=== PATIENT | male | born 1960 | race Caucasian/White ===

== ENCOUNTER 2017-08-07 07:30 | Inpatient (IN) ==
[2017-08-11 12:58] LABS: Basophils % 0.5 % (0.0-0.8); Eosinophils # 0.4 10*3/uL (0.0-0.87); Eosinophils % 4.5 % (0.00-10.9); Hematocrit 38.1 VOL% (42.0-52.0); Hemoglobin 13.3 GM/DL (14.0-18.0); Immature Granulocytes % 0.4 %; Immature Granulocytes Absolute 0.03 #; Lymphocytes # 1.4 10*3/uL (1.4-4.0); Lymphocytes % 17.3 % (21.2-54.2); Mean Corpuscular HGB Conc 34.9 GM/DL (32-36); Mean Corpuscular Hemoglobin 31 PG (27-34); Mean Corpuscular Volume 88.4 FL (87-102); Monocytes # 0.5 10*3/uL (0.11-0.8); Monocytes % 6.3 % (1.7-12.7); Neutrophils # 5.7 10*3/uL (1.4-7.4); Platelet Count 203 T/CUMM (130-400); Red Blood Count 4.31 MC/CUMM (3.8-5.5); White Blood Count 8.1 T/CUMM (4-12)
[2017-08-11] MEDS ORDERED: DEXTROSE 50% 25 GM/50 ML VIAL IV PRN ×4 (13:00→14:03)
[2017-08-11] MEDS ORDERED: GLUCAGON 1 MG VIAL IM PRN ×4 (13:00→14:03)
[2017-08-11 13:29] LABS: Alanine Aminotransferase 38 U/L (16-61); Albumin 3.5 G/DL (3.4-5.0); Alkaline Phosphatase 148 U/L (45-117); Aspartate Amino Transferase 29 U/L (0-37); Bilirubin,Total < 0.39 MG/DL (0.2-1.0); Blood Urea Nitrogen 37 MG/DL (7-18); Calcium 8.7 MG/DL (8.5-10.1); Glucose 279 MG/DL (74-106); Osmolality,Calculated 295.5 MOS/KG (273-304); Potassium 4.6 MMOL/L (3.5-5.1); Sodium 139 MMOL/L (136-145); Total Protein 6.7 G/DL (6.4-8.3)
[2017-08-11] MEDS: CHLORHEXIDINE 4% SOLN 118 ML BOTTLE TOP SCH ×2 (14:55→23:00)
[2017-08-11] MEDS: CARBIDOPA/LEVODOPA 10-100 MG TABLET PO SCH ×3 (14:55→20:57)
[2017-08-11] MEDS ORDERED: SODIUM CHLORIDE 0.9% 1,000 ML IV SCH (15:00)
[2017-08-11] MEDS ORDERED: ZOLPIDEM 5 MG TABLET PO PRN (15:11)
[2017-08-11] MEDS: INSULIN LISPRO 100 UNIT/ML SUBCUT SCH ×2 (16:43→21:52)
[2017-08-11 16:48] LABS: ABG Base Excess -0.5 MMOL/L (-2.5-2.5); ABG Oxygen Saturation 97.1 % (95-100); ABG PCO2 37.3 MM HG (35-48); ABG PH 7.411 (7.35-7.45); ABG PO2 89.9 MM HG (80-95); ABG TCO2 20.7 MMOL/L (23-27)
[2017-08-11] MEDS ORDERED: LOVASTATIN 20 MG TABLET PO SCH (17:00)
[2017-08-11] MEDS: GABAPENTIN 300 MG CAPSULE PO SCH (20:57)
[2017-08-11] MEDS: RANOLAZINE 500 MG TABLET PO SCH (20:57)
[2017-08-11] MEDS: CHLORHEXIDINE 0.12% ORAL RINSE 60 ML BOTTLE SWISH/SPIT SCH (20:58)
[2017-08-11] MEDS ORDERED: ZALEPLON 5 MG CAPSULE PO PRN (22:39)
[2017-08-12] MEDS ORDERED: SODIUM CHLORIDE 0.9% 100 ML IV ONE ×2 (04:49→22:50)
[2017-08-12] MEDS ORDERED: CEFUROXIME INJ 1,500 MG in SYRINGE 1 EACH IV ONE (05:00)
[2017-08-12 05:16] LABS: Basophils # 0.1 10*3/uL (0.0-0.2); Basophils % 0.7 % (0.0-0.8); Eosinophils # 0.4 10*3/uL (0.0-0.87); Eosinophils % 5.2 % (0.00-10.9); Hematocrit 37.5 VOL% (42.0-52.0); Hemoglobin 12.9 GM/DL (14.0-18.0); Immature Granulocytes % 0.4 %; Immature Granulocytes Absolute 0.03 #; Lymphocytes # 2.1 10*3/uL (1.4-4.0); Lymphocytes % 28.2 % (21.2-54.2); Mean Corpuscular HGB Conc 34.4 GM/DL (32-36); Mean Corpuscular Hemoglobin 30 PG (27-34); Mean Corpuscular Volume 88.2 FL (87-102); Mean Platelet Volume 9.1 FL (9.6-12.0); Monocytes # 0.7 10*3/uL (0.11-0.8); Monocytes % 9.2 % (1.7-12.7); Neutrophils # 4.1 10*3/uL (1.4-7.4); Neutrophils % 56.3 % (38.7-73.9); Platelet Count 196 T/CUMM (130-400); Red Blood Count 4.25 MC/CUMM (3.8-5.5); Red Cell Distribution Width 12.8 % (9.3-17.3); White Blood Count 7.3 T/CUMM (4-12)
[2017-08-12] MEDS ORDERED: PAPAVERINE 60 MG/2 ML VIAL ONE (05:27)
[2017-08-12] MEDS ORDERED: DIAZEPAM 5 MG TABLET PO ONE (05:30)
[2017-08-12] MEDS ORDERED: FAMOTIDINE 20 MG TABLET PO ONE (05:30)
[2017-08-12 05:31] LABS: PT Patient Result 10.1 SECS
[2017-08-12] MEDS: LOSARTAN/HCTZ 50-12.5 MG TABLET PO SCH ×2 (05:45→08:10)
[2017-08-12] MEDS: RANOLAZINE 500 MG TABLET PO SCH ×2 (05:46→08:10)
[2017-08-12] MEDS: ATENOLOL 50 MG TABLET PO SCH ×2 (05:46→08:10)
[2017-08-12] MEDS ORDERED: MIDAZOLAM 10 MG/2 ML VIAL ONE ×2 (05:48)
[2017-08-12] MEDS ORDERED: TRANEXAMIC ACID 1,000 MG/10 ML VIAL ONE (05:48)
[2017-08-12] MEDS ORDERED: SUFentanil 250 MCG/5 ML AMP ONE ×2 (05:48)
[2017-08-12] MEDS ORDERED: VECURONIUM 10 MG VIAL IV ONE (05:49)
[2017-08-12 05:50] LABS: Albumin 3.2 G/DL (3.4-5.0); Calcium 8.8 MG/DL (8.5-10.1); Osmolality,Calculated 288.5 MOS/KG (273-304); Potassium 4.4 MMOL/L (3.5-5.1); Total Protein 6.4 G/DL (6.4-8.3)
[2017-08-12] MEDS: CHLORHEXIDINE 4% SOLN 118 ML BOTTLE TOP SCH ×2 (06:15→08:10)
[2017-08-12] MEDS: CHLORHEXIDINE 0.12% ORAL RINSE 60 ML BOTTLE SWISH/SPIT SCH ×3 (06:15→21:30)
[2017-08-12 07:43] LABS: ABG Base Excess -2.1 MMOL/L (-2.5-2.5); ABG HCO3 22.7 MMOL/L (20-26); ABG Oxygen Saturation 99.2 % (95-100); ABG PCO2 38.9 MM HG (35-48); ABG PH 7.383 (7.35-7.45); ABG PO2 341.4 MM HG (80-95); ABG TCO2 23.8 MMOL/L (23-27); Glucose Heart Surgery 216 MG/DL (74-106); Hemoglobin Heart Surgery 12.6 G/DL (14.0-18.0); Ionized Calcium Arterial 1.09 MMOL/L (1.21-1.46); PCO2 Patient Temp Arterial 38.9 MMHG; PH Patient Temp Arterial 7.383; PO2 Patient Temp Arterial 341.4 MM HG; Patient Temperature 37 CELCIUS; Potassium Heart/CVR 4.2 MMOL/L (3.5-5.1); Sodium Heart/CVR 134 MMOL/L (135-145)
[2017-08-12] MEDS: INSULIN LISPRO 100 UNIT/ML SUBCUT SCH (08:09)
[2017-08-12] MEDS: GABAPENTIN 300 MG CAPSULE PO SCH (08:10)
[2017-08-12] MEDS: CARBIDOPA/LEVODOPA 10-100 MG TABLET PO SCH (08:10)
[2017-08-12] MEDS ORDERED: EPINEPHrine 1 MG/10 ML SYRINGE ONE (08:19)
[2017-08-12] MEDS ORDERED: CALCIUM CHLORIDE 1,000 MG/10 ML SYRINGE IV ONE (08:19)
[2017-08-12] MEDS ORDERED: SODIUM BICARBONATE 50 MEQ/50 ML SYRINGE IV ONE ×2 (08:19→09:55)
[2017-08-12] MEDS ORDERED: ATROPINE 1 MG/10 ML SYRINGE ONE (08:20)
[2017-08-12] MEDS ORDERED: POTASSIUM CHLORIDE RIDER 100 ML IV ONE (08:20)
[2017-08-12] MEDS ORDERED: ALBUMIN 5% 12.5 GM/250 ML VIAL IV ONE (08:20)
[2017-08-12] MEDS ORDERED: PHENYLEPHRINE DRIP 40 MG/250 ML PREMIX IV ONE (08:21)
[2017-08-12] MEDS ORDERED: ASPIRIN CHEW 81 MG TABLET PO SCH (09:00)
[2017-08-12 09:17] LABS: Hematocrit Heart Surgery 25.5 PERCENT (42-52); Hemoglobin Heart Surgery 8.2 G/DL (14.0-18.0); PCO2 Patient Temp Venous 39.6 MM HG; PH Patient Temp Venous 7.389; PO2 Patient Temp Venous 36.9 MM HG; Potassium Heart/CVR 5.1 MMOL/L (3.5-5.1); VBG Base Excess -0.8 MEQ/L (0-4); VBG HCO3 23.5 MEQ/L (24-28); VBG Oxygen Saturation 76.8 %; VBG PCO2 43.6 MMHG (41-51); VBG PH 7.361; VBG PO2 42.4 MMHG (17-40)
[2017-08-12 09:54] LABS: Apearance,Urine CLEAR (Clear); Bilirubin,Urine Negative (Negative); Blood, Urine Negative (Negative); Glucose,Urine (UA) 50 mg/dL (Negative); Ketones,Urine Negative (Negative); Nitrite,Urine Negative (Negative); Protein,Urine 100 MG/DL; Urine Color Yellow (Yellow); Urine Specific Gravity 1.019 (1.001-1.035); Urine Urobilinogen < 2.0 EU/DL (0.2-1.0)
[2017-08-12] MEDS ORDERED: DEXTROSE 5% KCL 20 MEQ 20 MEQ/1,000 ML BAG IV ONE (09:54)
[2017-08-12] MEDS ORDERED: PROTAMINE SULFATE 250 MG/25 ML VIAL IV ONE (09:55)
[2017-08-12] MEDS ORDERED: ALBUMIN 25% 25 GM/100 ML VIAL IV ONE (09:55)
[2017-08-12] MEDS ORDERED: methylPREDNISolone SOD SUC 1,000 MG/8 ML VIAL ONE (09:55)
[2017-08-12] MEDS ORDERED: MANNITOL 12.5 GM/50 ML VIAL IV ONE (09:55)
[2017-08-12] MEDS ORDERED: FUROSEMIDE 20 MG/2 ML VIAL ONE (09:55)
[2017-08-12] MEDS ORDERED: HEPARIN 10,000 UNIT/10 ML VIAL ONE (09:55)
[2017-08-12] MEDS ORDERED: MAGNESIUM SULFATE 1 GM/2 ML VIAL ONE (09:55)
[2017-08-12] MEDS ORDERED: PROTAMINE SULFATE 50 MG/5 ML VIAL IV ONE ×3 (09:56→11:18)
[2017-08-12 09:57] LABS: Mucus,Urine Occasional /LPF (Occasional); RBC,Urine 2 /HPF (0-4); WBC,Urine <1 /HPF (0-6)
[2017-08-12 10:04] LABS: ABG Base Excess -0.8 MMOL/L (-2.5-2.5); ABG HCO3 23.8 MMOL/L (20-26); ABG Oxygen Saturation 99.1 % (95-100); ABG PCO2 37.3 MM HG (35-48); ABG PH 7.409 (7.35-7.45); ABG TCO2 21.7 MMOL/L (23-27); Potassium Heart/CVR 4.7 MMOL/L (3.5-5.1)
[2017-08-12 10:05] LABS: Glucose Heart Surgery 313 MG/DL (74-106); Hematocrit Heart Surgery 27.6 PERCENT (42-52); Hemoglobin Heart Surgery 8.9 G/DL (14.0-18.0); PCO2 Patient Temp Arterial 37.3 MMHG; PH Patient Temp Arterial 7.409; Patient Temperature 37 CELCIUS; Sodium Heart/CVR 132 MMOL/L (135-145)
[2017-08-12] MEDS: SODIUM CHLORIDE 0.45% 1,000 ML IV SCH ×2 (10:40)
[2017-08-12] MEDS ORDERED: NITROGLYCERIN DRIP 50 MG/250 ML BOTTLE IV ONE ×2 (10:43→10:55)
[2017-08-12] MEDS ORDERED: POTASSIUM CHLORIDE RIDER 10 MEQ in PREMIX 1 EACH IV PRN (10:48)
[2017-08-12] MEDS ORDERED: ONDANSETRON 4 MG/2 ML VIAL IV PRN (10:48)
[2017-08-12] MEDS ORDERED: INSULIN REGULAR 100 UNIT/ML IV ONE (10:48)
[2017-08-12] MEDS ORDERED: ACETAMINOPHEN 650 MG SUPP RECTAL PRN (10:48)
[2017-08-12] MEDS ORDERED: PHENYLEPHRINE DRIP 40 MG/250 ML PREMIX IV PRN (10:48)
[2017-08-12] MEDS ORDERED: MORPHINE 4 MG/1 ML VIAL IV PRN (10:48)
[2017-08-12] MEDS ORDERED: VECURONIUM 10 MG VIAL IV PRN ×2 (10:48)
[2017-08-12] MEDS ORDERED: NITROPRUSSIDE 100 MG in DEXTROSE 5% 250 ML IV PRN (10:48)
[2017-08-12] MEDS ORDERED: INSULIN REGULAR 100 UNIT/ML IV PRN (10:48)
[2017-08-12] MEDS ORDERED: MAGNESIUM SULF RIDER 4 GM in PREMIX 1 EACH IV PRN (10:48)
[2017-08-12] MEDS ORDERED: DEXTROSE 50% 25 GM/50 ML VIAL IV PRN ×2 (10:48)
[2017-08-12] MEDS ORDERED: MIDAZOLAM 10 MG/2 ML VIAL IV PRN (10:48)
[2017-08-12] MEDS ORDERED: MIDAZOLAM 2 MG/2 ML VIAL IV PRN (10:48)
[2017-08-12] MEDS ORDERED: MAGNESIUM SULF RIDER 2 GM in PREMIX 1 EACH IV PRN (10:48)
[2017-08-12] MEDS ORDERED: CALCIUM CHLORIDE 1,000 MG/10 ML SYRINGE IV PRN (10:48)
[2017-08-12] MEDS ORDERED: SEVOFLURANE 1 UNIT/15 MINUTE INH ONE (10:54)
[2017-08-12] MEDS ORDERED: PHENYLEPHRINE 10 MG/1 ML VIAL IV ONE (10:54)
[2017-08-12] MEDS ORDERED: CALCIUM CHLORIDE 1,000 MG/10 ML VIAL IV ONE (10:54)
[2017-08-12] MEDS ORDERED: SODIUM CHLORIDE 0.9% 200 ML IV ONE (10:55)
[2017-08-12] MEDS ORDERED: PHENYLEPHRINE DRIP 20 MG/250 ML PREMIX IV ONE (10:55)
[2017-08-12] MEDS ORDERED: SODIUM CHLORIDE 0.9% 2,000 ML IV ONE (10:55)
[2017-08-12] MEDS ORDERED: INSULIN REGULAR DRIP 100 ML IV SCH (11:00)
[2017-08-12] MEDS ORDERED: NITROGLYCERIN DRIP 50 MG/250 ML BOTTLE IV PRN (11:00)
[2017-08-12 11:22] LABS: ABG Base Excess 0.5 MMOL/L (-2.5-2.5); ABG HCO3 24.9 MMOL/L (20-26); ABG Oxygen Saturation 97.7 % (95-100); ABG PCO2 42.4 MM HG (35-48); ABG PH 7.389 (7.35-7.45); ABG PO2 94.5 MM HG (80-95); ABG TCO2 23.3 MMOL/L (23-27); Glucose Heart Surgery 289 MG/DL (74-106); Hematocrit Heart Surgery 31.3 PERCENT (42-52); Hemoglobin Heart Surgery 10.1 G/DL (14.0-18.0); Potassium Heart/CVR 4.3 MMOL/L (3.5-5.1)
[2017-08-12 11:36] LABS: Basophils % 0.5 % (0.0-0.8); Eosinophils # 0.2 10*3/uL (0.0-0.87); Eosinophils % 2.6 % (0.00-10.9); Hematocrit 29.1 VOL% (42.0-52.0); Immature Granulocytes % 0.5 %; Immature Granulocytes Absolute 0.04 #; Lymphocytes # 1.1 10*3/uL (1.4-4.0); Lymphocytes % 13.9 % (21.2-54.2); Mean Corpuscular HGB Conc 34.4 GM/DL (32-36); Mean Corpuscular Hemoglobin 31 PG (27-34); Mean Corpuscular Volume 89.3 FL (87-102); Mean Platelet Volume 9.3 FL (9.6-12.0); Monocytes # 0.4 10*3/uL (0.11-0.8); Monocytes % 4.9 % (1.7-12.7); Neutrophils # 5.9 10*3/uL (1.4-7.4); Neutrophils % 77.6 % (38.7-73.9); PT Patient Result 10.6 SECS; Partial Thromboplastin Time 32.9 SECS (0-40); Platelet Count 169 T/CUMM (130-400); Red Cell Distribution Width 12.8 % (9.3-17.3); White Blood Count 7.6 T/CUMM (4-12)
[2017-08-12 11:38] LABS: Red Blood Count 3.26 MC/CUMM (3.8-5.5)
[2017-08-12 11:48] LABS: Band Neutrophils 2 % (0-10); Eosinophils 2 % (0-10); Lymphocytes 12 % (20-55); Microcytosis 1+; Ovalocytes Slight; Segmented Neutrophils 80 % (50-85); Total Cells Counted 100
[2017-08-12 11:49] LABS: Platelet Estimate Adequate
[2017-08-12] MEDS: KETOROLAC 30 MG/1 ML VIAL IV SCH ×3 (11:49→22:04)
[2017-08-12 12:07] LABS: CKMB % 2.8 %
[2017-08-12 12:08] LABS: Troponin I Only 0.309 NG/ML (0.00-0.045)
[2017-08-12 12:30] LABS: Albumin 3.2 G/DL (3.4-5.0); Bilirubin,Total 0.4 MG/DL (0.2-1.0); Calcium 8.8 MG/DL (8.5-10.1); Osmolality,Calculated 290.7 MOS/KG (273-304); Potassium 4.3 MMOL/L (3.5-5.1); Total Protein 5.8 G/DL (6.4-8.3)
[2017-08-12] MEDS: ALBUMIN 5% 12.5 GM in PREMIX 1 EACH IV PRN ×3 (12:37→17:15)
[2017-08-12] MEDS: LACTATED RINGERS 250 ML IV PRN ×3 (13:00→17:45)
[2017-08-12 13:09] LABS: ABG Base Excess 0.3 MMOL/L (-2.5-2.5); ABG HCO3 24.7 MMOL/L (20-26); ABG Oxygen Saturation 96.8 % (95-100); ABG PCO2 44.9 MM HG (35-48); ABG PH 7.368 (7.35-7.45); ABG TCO2 23.7 MMOL/L (23-27); Glucose Heart Surgery 231 MG/DL (74-106); Hemoglobin Heart Surgery 9.7 G/DL (14.0-18.0); Potassium Heart/CVR 3.7 MMOL/L (3.5-5.1)
[2017-08-12] MEDS: POTASSIUM CHLORIDE RIDER 20 MEQ in PREMIX 1 EACH IV PRN (13:26)
[2017-08-12] MEDS: MORPHINE 10 MG/1 ML VIAL IV PRN ×2 (14:22→21:56)
[2017-08-12] MEDS ORDERED: PROPOFOL 1,000 MG/100 ML BOTTLE IV SCH (14:30)
[2017-08-12] MEDS ORDERED: ATENOLOL 50 MG TABLET PO ONE (14:30)
[2017-08-12 16:07] LABS: ABG Base Excess 1.3 MMOL/L (-2.5-2.5); ABG HCO3 27.9 MMOL/L (20-26); ABG PCO2 54.1 MM HG (35-48); ABG PH 7.331 (7.35-7.45); ABG PO2 106.8 MM HG (80-95); ABG TCO2 29.6 MMOL/L (23-27); Glucose Heart Surgery 137 MG/DL (74-106); Hemoglobin Heart Surgery 11.4 G/DL (14.0-18.0); Potassium Heart/CVR 4.4 MMOL/L (3.5-5.1)
[2017-08-12] MEDS ORDERED: FUROSEMIDE 40 MG/4 ML VIAL IV ONE (16:53)
[2017-08-12 18:14] LABS: ABG Base Excess -0.1 MMOL/L (-2.5-2.5); ABG HCO3 24.3 MMOL/L (20-26); ABG Oxygen Saturation 98.2 % (95-100); ABG PCO2 50.7 MM HG (35-48); ABG PH 7.326 (7.35-7.45); ABG TCO2 24.2 MMOL/L (23-27); Glucose Heart Surgery 114 MG/DL (74-106); Hematocrit Heart Surgery 31.8 PERCENT (42-52); Hemoglobin Heart Surgery 10.3 G/DL (14.0-18.0); Potassium Heart/CVR 4.2 MMOL/L (3.5-5.1)
[2017-08-12 18:47] LABS: CKMB % 3.9 %
[2017-08-12] MEDS: CEFUROXIME INJ 1,500 MG in SYRINGE 1 EACH IV SCH (18:50)
[2017-08-12 18:52] LABS: Troponin I Only 5.37 NG/ML (0.00-0.045)
[2017-08-12 19:56] LABS: ABG Base Excess 0.6 MMOL/L (-2.5-2.5); ABG Oxygen Saturation 97.9 % (95-100); ABG PCO2 48.1 MM HG (35-48); ABG PH 7.351 (7.35-7.45); ABG TCO2 24.3 MMOL/L (23-27); Glucose Heart Surgery 124 MG/DL (74-106); Hematocrit Heart Surgery 31.1 PERCENT (42-52); Hemoglobin Heart Surgery 10.1 G/DL (14.0-18.0); Potassium Heart/CVR 4.2 MMOL/L (3.5-5.1)
[2017-08-12 20:50] LABS: ABG Base Excess 0.5 MMOL/L (-2.5-2.5); ABG HCO3 24.9 MMOL/L (20-26); ABG Oxygen Saturation 98.4 % (95-100); ABG PCO2 47.1 MM HG (35-48); ABG PH 7.356 (7.35-7.45); Glucose Heart Surgery 147 MG/DL (74-106); Hematocrit Heart Surgery 31.7 PERCENT (42-52); Hemoglobin Heart Surgery 10.3 G/DL (14.0-18.0); Potassium Heart/CVR 4.2 MMOL/L (3.5-5.1)
[2017-08-12] MEDS ORDERED: ZOLPIDEM 5 MG TABLET PO PRN (21:00)
[2017-08-12] MEDS ORDERED: LOSARTAN/HCTZ 50-12.5 MG TABLET PO ONE (21:17)
[2017-08-12] MEDS: traMADol 50 MG TABLET PO PRN (22:30)
[2017-08-12] MEDS ORDERED: DILTIAZEM 50 MG/10 ML VIAL IV ONE ×2 (22:48→22:49)
[2017-08-12] MEDS ORDERED: DILTIAZEM 100 MG VIAL.ADD IV ONE (22:49)
[2017-08-12] MEDS: DILTIAZEM INJ 100 MG in SODIUM CHLORIDE 0.9% 100 ML IV SCH (22:59)
[2017-08-13] MEDS ORDERED: GLUCAGON 1 MG VIAL IM PRN ×3 (00:14→11:15)
[2017-08-13] MEDS ORDERED: DEXTROSE 50% 25 GM/50 ML VIAL IV PRN ×3 (00:14→11:15)
[2017-08-13] MEDS ORDERED: INSULIN LISPRO 100 UNIT/ML ONE ×2 (00:23→03:57)
[2017-08-13] MEDS: INSULIN LISPRO 100 UNIT/ML SUBCUT SCH ×7 (00:24→22:37)
[2017-08-13] MEDS: CLORAZEPATE 7.5 MG TABLET PO PRN ×2 (00:44→21:12)
[2017-08-13] MEDS: MORPHINE 10 MG/1 ML VIAL IV PRN (02:32)
[2017-08-13 03:26] LABS: ABG Base Excess -0.1 MMOL/L (-2.5-2.5); ABG HCO3 24.3 MMOL/L (20-26); ABG Oxygen Saturation 93.7 % (95-100); ABG PCO2 47.8 MM HG (35-48); ABG PH 7.344 (7.35-7.45); ABG PO2 70.7 MM HG (80-95); ABG TCO2 23.8 MMOL/L (23-27); Glucose Heart Surgery 195 MG/DL (74-106); Hematocrit Heart Surgery 30.7 PERCENT (42-52); Hemoglobin Heart Surgery 9.9 G/DL (14.0-18.0); Potassium Heart/CVR 4.1 MMOL/L (3.5-5.1)
[2017-08-13 03:28] LABS: Basophils % 0.1 % (0.0-0.8); Hematocrit 29.3 VOL% (42.0-52.0); Immature Granulocytes % 0.4 %; Immature Granulocytes Absolute 0.05 #; Lymphocytes # 0.7 10*3/uL (1.4-4.0); Lymphocytes % 4.9 % (21.2-54.2); Mean Corpuscular HGB Conc 34.1 GM/DL (32-36); Mean Corpuscular Hemoglobin 31 PG (27-34); Mean Corpuscular Volume 89.3 FL (87-102); Mean Platelet Volume 9.1 FL (9.6-12.0); Monocytes # 0.6 10*3/uL (0.11-0.8); Monocytes % 4.2 % (1.7-12.7); Neutrophils # 12.1 10*3/uL (1.4-7.4); Neutrophils % 90.4 % (38.7-73.9); Platelet Count 199 T/CUMM (130-400); Red Blood Count 3.28 MC/CUMM (3.8-5.5); Red Cell Distribution Width 13.2 % (9.3-17.3); White Blood Count 13.4 T/CUMM (4-12)
[2017-08-13 04:02] LABS: Band Neutrophils 8 % (0-10); Lymphocytes 3 % (20-55); Segmented Neutrophils 83 % (50-85)
[2017-08-13 04:03] LABS: Platelet Estimate Normal; Total Cells Counted 100
[2017-08-13] MEDS: KETOROLAC 30 MG/1 ML VIAL IV SCH ×3 (04:05→18:10)
[2017-08-13 04:09] LABS: Albumin 3.7 G/DL (3.4-5.0); Bilirubin,Direct 0.12 MG/DL (0.0-0.20); Bilirubin,Total 0.4 MG/DL (0.2-1.0); Calcium 8.4 MG/DL (8.5-10.1); Osmolality,Calculated 290.4 MOS/KG (273-304); Potassium 4.1 MMOL/L (3.5-5.1); Total Protein 6.3 G/DL (6.4-8.3)
[2017-08-13] MEDS: traMADol 50 MG TABLET PO PRN ×2 (04:15→16:45)
[2017-08-13 04:32] LABS: CKMB % 4.1 %
[2017-08-13 04:36] LABS: Troponin I Only 5.85 NG/ML (0.00-0.045)
[2017-08-13] MEDS: POTASSIUM CHLORIDE RIDER 20 MEQ in PREMIX 1 EACH IV PRN (04:42)
[2017-08-13] MEDS: CEFUROXIME INJ 1,500 MG in SYRINGE 1 EACH IV SCH (06:21)
[2017-08-13] MEDS: DILTIAZEM INJ 100 MG in SODIUM CHLORIDE 0.9% 100 ML IV SCH (07:05)
[2017-08-13] MEDS: CHLORHEXIDINE 0.12% ORAL RINSE 60 ML BOTTLE SWISH/SPIT SCH ×2 (08:57→21:14)
[2017-08-13] MEDS ORDERED: POTASSIUM CHLORIDE 20 MEQ TABLET PO PRN (11:15)
[2017-08-13] MEDS ORDERED: ALUMINUM/MAGNES/SIMETH MAX STR 30 ML UDCUP PO PRN (11:15)
[2017-08-13] MEDS ORDERED: MAGNESIUM SULF RIDER 4 GM in PREMIX 1 EACH IV PRN (11:15)
[2017-08-13] MEDS ORDERED: ONDANSETRON 4 MG/2 ML VIAL IV PRN (11:15)
[2017-08-13] MEDS ORDERED: MORPHINE 4 MG/1 ML VIAL IV PRN (11:15)
[2017-08-13] MEDS ORDERED: MAGNESIUM SULF RIDER 2 GM in PREMIX 1 EACH IV PRN (11:15)
[2017-08-13] MEDS ORDERED: SODIUM CHLOR 0.45% KCL 20 MEQ 20 MEQ/1,000 ML BAG IV SCH (11:15)
[2017-08-13] MEDS ORDERED: ACETAMINOPHEN 325 MG TABLET PO PRN (11:15)
[2017-08-13] MEDS: SODIUM CHLORIDE 0.45% 1,000 ML IV SCH ×2 (11:17)
[2017-08-13] MEDS: ATENOLOL 50 MG TABLET PO SCH (12:10)
[2017-08-13] MEDS: RANOLAZINE 500 MG TABLET PO SCH ×2 (12:11→21:12)
[2017-08-13] MEDS: GABAPENTIN 300 MG CAPSULE PO PRN ×2 (14:53→21:16)
[2017-08-13] MEDS: LOVASTATIN 20 MG TABLET PO SCH (16:41)
[2017-08-13] MEDS: metFORMIN 500 MG TABLET PO SCH (16:42)
[2017-08-13] MEDS: MAGNESIUM HYDROXIDE SUSP 30 ML UDCUP PO PRN (18:18)
[2017-08-13] MEDS: ZALEPLON 5 MG CAPSULE PO PRN ×2 (21:12→22:37)
[2017-08-13] MEDS: LOSARTAN 50 MG TABLET PO SCH (21:12)
[2017-08-13] MEDS: hydroCHLOROthiazide 12.5 MG CAPSULE PO SCH (21:12)
[2017-08-13] MEDS: CARBIDOPA/LEVODOPA 10-100 MG TABLET PO SCH (21:13)
[2017-08-13] MEDS: ASPIRIN EC 81 MG TABLET PO SCH (21:13)
[2017-08-14] MEDS: KETOROLAC 30 MG/1 ML VIAL IV SCH ×4 (00:41→17:06)
[2017-08-14] MEDS: INSULIN LISPRO 100 UNIT/ML SUBCUT SCH ×8 (02:24→22:16)
[2017-08-14 05:55] LABS: Basophils % 0.1 % (0.0-0.8); Hematocrit 27.1 VOL% (42.0-52.0); Immature Granulocytes % 0.8 %; Immature Granulocytes Absolute 0.08 #; Lymphocytes # 0.7 10*3/uL (1.4-4.0); Lymphocytes % 6.7 % (21.2-54.2); Mean Corpuscular HGB Conc 33.2 GM/DL (32-36); Mean Corpuscular Hemoglobin 30 PG (27-34); Mean Corpuscular Volume 91.6 FL (87-102); Mean Platelet Volume 9.7 FL (9.6-12.0); Monocytes # 0.8 10*3/uL (0.11-0.8); Monocytes % 7.4 % (1.7-12.7); Neutrophils # 8.7 10*3/uL (1.4-7.4); Platelet Count 166 T/CUMM (130-400); Red Blood Count 2.96 MC/CUMM (3.8-5.5); Red Cell Distribution Width 13.3 % (9.3-17.3); White Blood Count 10.2 T/CUMM (4-12)
[2017-08-14] MEDS ORDERED: FUROSEMIDE 40 MG/4 ML VIAL IV ONE (06:00)
[2017-08-14 06:18] LABS: Band Neutrophils 1 % (0-10); Lymphocytes 11 % (20-55); Segmented Neutrophils 81 % (50-85); Total Cells Counted 100
[2017-08-14 06:19] LABS: Platelet Estimate Normal
[2017-08-14 06:33] LABS: Alanine Aminotransferase 22 U/L (16-61); Albumin 3.1 G/DL (3.4-5.0); Alkaline Phosphatase 82 U/L (45-117); Aspartate Amino Transferase 35 U/L (0-37); Bilirubin,Direct < 0.100 MG/DL (0.0-0.20); Bilirubin,Indirect 0.3 MG/DL (0.0-1.0); Bilirubin,Total < 0.39 MG/DL (0.2-1.0); Blood Urea Nitrogen 61 MG/DL (7-18); CKMB % 2.1 %; Calcium 7.7 MG/DL (8.5-10.1); Glucose 273 MG/DL (74-106); Osmolality,Calculated 303.5 MOS/KG (273-304); Potassium 4.3 MMOL/L (3.5-5.1); Sodium 139 MMOL/L (136-145); Total Protein 5.8 G/DL (6.4-8.3)
[2017-08-14] MEDS: ATENOLOL 50 MG TABLET PO SCH (08:27)
[2017-08-14] MEDS: metFORMIN 500 MG TABLET PO SCH ×2 (08:28→17:05)
[2017-08-14] MEDS: FERROUS SULFATE 325 MG TABLET PO SCH (08:28)
[2017-08-14] MEDS: DOCUSATE SODIUM 100 MG CAPSULE PO SCH (08:28)
[2017-08-14] MEDS: RANOLAZINE 500 MG TABLET PO SCH ×2 (08:28→22:06)
[2017-08-14] MEDS: ISOSORBIDE MONONITRATE 60 MG TABLET PO SCH (08:28)
[2017-08-14] MEDS: PANTOPRAZOLE 40 MG TABLET PO SCH (08:28)
[2017-08-14] MEDS: CHLORHEXIDINE 0.12% ORAL RINSE 60 ML BOTTLE SWISH/SPIT SCH ×2 (12:23→22:11)
[2017-08-14] MEDS: LOVASTATIN 20 MG TABLET PO SCH (17:06)
[2017-08-14] MEDS: MAGNESIUM HYDROXIDE SUSP 30 ML UDCUP PO PRN (17:08)
[2017-08-14] MEDS: INSULIN DEGLUDEC 80 UNIT SUBCUT SCH ×2 (22:04)
[2017-08-14] MEDS: ZALEPLON 5 MG CAPSULE PO PRN ×2 (22:06→23:08)
[2017-08-14] MEDS: hydroCHLOROthiazide 12.5 MG CAPSULE PO SCH (22:06)
[2017-08-14] MEDS: LOSARTAN 50 MG TABLET PO SCH (22:06)
[2017-08-14] MEDS: GABAPENTIN 300 MG CAPSULE PO PRN (22:06)
[2017-08-14] MEDS: ASPIRIN EC 81 MG TABLET PO SCH (22:07)
[2017-08-14] MEDS: CLORAZEPATE 7.5 MG TABLET PO PRN (22:07)
[2017-08-14] MEDS: traMADol 50 MG TABLET PO PRN (22:08)
[2017-08-14] MEDS: CARBIDOPA/LEVODOPA 10-100 MG TABLET PO SCH (22:13)
[2017-08-15] MEDS: KETOROLAC 30 MG/1 ML VIAL IV SCH ×4 (00:06→17:43)
[2017-08-15] MEDS: INSULIN LISPRO 100 UNIT/ML SUBCUT SCH ×9 (03:14→22:52)
[2017-08-15 06:06] LABS: Basophils % 0.1 % (0.0-0.8); Eosinophils # 0.1 10*3/uL (0.0-0.87); Eosinophils % 1.2 % (0.00-10.9); Hematocrit 25.8 VOL% (42.0-52.0); Hemoglobin 8.9 GM/DL (14.0-18.0); Immature Granulocytes % 0.7 %; Immature Granulocytes Absolute 0.06 #; Lymphocytes # 1.7 10*3/uL (1.4-4.0); Mean Corpuscular HGB Conc 34.5 GM/DL (32-36); Mean Corpuscular Hemoglobin 31 PG (27-34); Mean Corpuscular Volume 90.5 FL (87-102); Mean Platelet Volume 9.7 FL (9.6-12.0); Monocytes # 0.7 10*3/uL (0.11-0.8); Monocytes % 8.4 % (1.7-12.7); Neutrophils # 6.3 10*3/uL (1.4-7.4); Neutrophils % 70.6 % (38.7-73.9); Platelet Count 166 T/CUMM (130-400); Red Blood Count 2.85 MC/CUMM (3.8-5.5); Red Cell Distribution Width 13.9 % (9.3-17.3); White Blood Count 8.9 T/CUMM (4-12)
[2017-08-15 06:36] LABS: Alanine Aminotransferase 28 U/L (16-61); Albumin 2.8 G/DL (3.4-5.0); Alkaline Phosphatase 69 U/L (45-117); Aspartate Amino Transferase 24 U/L (0-37); Bilirubin,Direct < 0.100 MG/DL (0.0-0.20); Bilirubin,Indirect 0.3 MG/DL (0.0-1.0); Bilirubin,Total < 0.39 MG/DL (0.2-1.0); Blood Urea Nitrogen 67 MG/DL (7-18); CKMB % 1.8 %; Calcium 7.9 MG/DL (8.5-10.1); Glucose 115 MG/DL (74-106); Osmolality,Calculated 302.1 MOS/KG (273-304); Potassium 4.3 MMOL/L (3.5-5.1); Sodium 142 MMOL/L (136-145); Total Protein 5.5 G/DL (6.4-8.3)
[2017-08-15] MEDS: RANOLAZINE 500 MG TABLET PO SCH ×2 (09:07→21:46)
[2017-08-15] MEDS: metFORMIN 500 MG TABLET PO SCH ×2 (09:07→16:47)
[2017-08-15] MEDS: ISOSORBIDE MONONITRATE 60 MG TABLET PO SCH (09:07)
[2017-08-15] MEDS: DOCUSATE SODIUM 100 MG CAPSULE PO SCH (09:08)
[2017-08-15] MEDS: PANTOPRAZOLE 40 MG TABLET PO SCH (09:08)
[2017-08-15] MEDS: ATENOLOL 50 MG TABLET PO SCH (09:08)
[2017-08-15] MEDS: FERROUS SULFATE 325 MG TABLET PO SCH (09:08)
[2017-08-15] MEDS: CHLORHEXIDINE 0.12% ORAL RINSE 60 ML BOTTLE SWISH/SPIT SCH ×2 (09:15→21:46)
[2017-08-15] MEDS: LOVASTATIN 20 MG TABLET PO SCH (16:47)
[2017-08-15] MEDS: ASPIRIN EC 81 MG TABLET PO SCH (21:45)
[2017-08-15] MEDS: CLORAZEPATE 7.5 MG TABLET PO PRN (21:45)
[2017-08-15] MEDS: LOSARTAN 50 MG TABLET PO SCH (21:45)
[2017-08-15] MEDS: INSULIN DEGLUDEC 80 UNIT SUBCUT SCH (21:45)
[2017-08-15] MEDS: traMADol 50 MG TABLET PO PRN (21:46)
[2017-08-15] MEDS: hydroCHLOROthiazide 12.5 MG CAPSULE PO SCH (21:46)
[2017-08-15] MEDS: CARBIDOPA/LEVODOPA 10-100 MG TABLET PO SCH (21:46)
[2017-08-15] MEDS: ZALEPLON 5 MG CAPSULE PO PRN ×2 (21:47→22:33)
[2017-08-15] MEDS: GABAPENTIN 300 MG CAPSULE PO PRN (21:47)
[2017-08-15] MEDS: MAGNESIUM HYDROXIDE SUSP 30 ML UDCUP PO PRN (22:33)
[2017-08-16] MEDS: KETOROLAC 30 MG/1 ML VIAL IV SCH ×2 (00:48→05:11)
[2017-08-16] MEDS: INSULIN LISPRO 100 UNIT/ML SUBCUT SCH ×4 (02:25→11:40)
[2017-08-16 08:03] VITALS: BP 108/64
[2017-08-16] MEDS: FERROUS SULFATE 325 MG TABLET PO SCH (09:21)
[2017-08-16] MEDS: PANTOPRAZOLE 40 MG TABLET PO SCH (09:21)
[2017-08-16] MEDS: RANOLAZINE 500 MG TABLET PO SCH (09:21)
[2017-08-16] MEDS: ATENOLOL 50 MG TABLET PO SCH (09:21)
[2017-08-16] MEDS: metFORMIN 500 MG TABLET PO SCH (09:21)
[2017-08-16] MEDS: ISOSORBIDE MONONITRATE 60 MG TABLET PO SCH (09:22)
[2017-08-16] MEDS: DOCUSATE SODIUM 100 MG CAPSULE PO SCH (09:22)
[2017-08-16] MEDS: CHLORHEXIDINE 0.12% ORAL RINSE 60 ML BOTTLE SWISH/SPIT SCH (09:23)
== END 2017-08-16 12:03 | disposition home or self-care (01) | DRG 236 ==
LOC: N.TELEN 08-11 11:15 → N.CVR 08-12 07:09 → N.TELES 08-13 10:55

== ENCOUNTER 2020-04-04 06:32 | Inpatient (IN) ==
[2020-03-30 16:11] LABS: Basophils # 0.1 10*3/uL (0.0-0.2); Basophils % 0.7 % (0.0-0.8); Eosinophils # 0.3 10*3/uL (0.0-0.87); Eosinophils % 4.9 % (0.00-10.9); Hematocrit 42.2 VOL% (42.0-52.0); Hemoglobin 14.4 GM/DL (14.0-18.0); Immature Granulocytes % 0.3 %; Immature Granulocytes Absolute 0.02 #; Lymphocytes # 1.4 10*3/uL (1.4-4.0); Lymphocytes % 20.6 % (21.2-54.2); Mean Corpuscular HGB Conc 34.1 GM/DL (32-36); Mean Corpuscular Volume 90.6 FL (87-102); Mean Platelet Volume 8.9 FL (9.6-12.0); Monocytes % 8.4 % (1.7-12.7); Neutrophils % 65.1 % (38.7-73.9); Platelet Count 239 T/CUMM (130-400); Red Blood Count 4.66 MC/CUMM (3.8-5.5); Red Cell Distribution Width 13.2 % (9.3-17.3); White Blood Count 6.9 T/CUMM (4-12)
[2020-03-30 16:21] LABS: INR 0.9; PT Patient Result 9.9 SECS (9.8-11.9)
[2020-03-30 16:37] LABS: Albumin 3.2 G/DL (3.4-5.0); Bilirubin,Total 0.5 MG/DL (0.2-1.0); Calcium 8.8 MG/DL (8.5-10.1); Osmolality,Calculated 291.7 MOS/KG (273-304); Total Protein 6.7 G/DL (6.4-8.3)
[~2020-04-04 06:32] MED LIST: ceFAZolin 2,000 MG in PREMIX 1 EACH IV ONE
[2020-04-04] MEDS ORDERED: PHENYLEPHRINE DRIP 20 MG/250 ML PREMIX IV ONE (06:52)
[2020-04-04] MEDS ORDERED: HEPARIN/NACL 0.9% 2 UNITS/ML 500 ML IV ONE (06:52)
[2020-04-04] MEDS ORDERED: SODIUM CHLORIDE 0.9% 1,000 ML IV ONE (06:52)
[2020-04-04] MEDS ORDERED: NITROGLYCERIN DRIP 50 MG/250 ML BOTTLE IV ONE (06:52)
[2020-04-04] MEDS ORDERED: DIAZEPAM 5 MG TABLET PO ONE (06:55)
[2020-04-04] MEDS ORDERED: FAMOTIDINE 20 MG TABLET PO ONE (06:55)
[2020-04-04] MEDS ORDERED: ROCURONIUM 50 MG/5 ML VIAL IV ONE (07:29)
[2020-04-04] MEDS ORDERED: LIDOCAINE 2% 5 ML VIAL ONE ×2 (07:29→10:47)
[2020-04-04] MEDS ORDERED: propofoL 200 MG/20 ML VIAL IV ONE (07:29)
[2020-04-04] MEDS ORDERED: MIDAZOLAM 2 MG/2 ML VIAL ONE (07:29)
[2020-04-04] MEDS ORDERED: SUCCINYLCHOLINE 200 MG/10 ML VIAL ONE (07:29)
[2020-04-04] MEDS ORDERED: fentaNYL 100 MCG/2 ML VIAL ONE ×2 (07:30→09:50)
[2020-04-04] MEDS ORDERED: ETOMIDATE 40 MG/20 ML VIAL IV ONE (07:33)
[2020-04-04] MEDS ORDERED: HEPARIN 5,000 UNIT/1 ML VIAL ONE (07:34)
[2020-04-04] MEDS ORDERED: LIDOCAINE 1% 20 ML VIAL ONE (07:34)
[2020-04-04] MEDS ORDERED: ROPIVACAINE 0.5% 30 ML VIAL ONE (07:37)
[2020-04-04] MEDS ORDERED: LIDOCAINE 1% 5 ML VIAL ONE (07:39)
[2020-04-04] MEDS: LACTATED RINGERS 1,000 ML IV SCH ×3 (09:01→20:44)
[2020-04-04] MEDS ORDERED: ePHEDrine 50 MG/ML VIAL ONE (09:05)
[2020-04-04] MEDS ORDERED: KETOROLAC 30 MG/1 ML VIAL ONE (09:31)
[2020-04-04] MEDS ORDERED: GLYCOPYRROLATE 0.4 MG/2 ML VIAL ONE ×2 (09:31→09:38)
[2020-04-04] MEDS ORDERED: ACETAMINOPHEN 1,000 MG/100 ML VIAL IV ONE (09:31)
[2020-04-04] MEDS ORDERED: NEOSTIGMINE 10 MG/10 ML VIAL ONE (09:38)
[2020-04-04] MEDS ORDERED: HEPARIN 10,000 UNIT/10 ML VIAL ONE (10:02)
[2020-04-04] MEDS ORDERED: SODIUM CHLORIDE 0.9% 100 ML IV ONE (10:02)
[2020-04-04] MEDS ORDERED: SEVOFLURANE 1 UNIT/15 MINUTE INH ONE (10:02)
[2020-04-04] MEDS ORDERED: PROTAMINE SULFATE 50 MG/5 ML VIAL IV ONE (10:02)
[2020-04-04] MEDS ORDERED: DEXTROSE 50% 25 GM/50 ML VIAL IV PRN (10:21)
[2020-04-04] MEDS ORDERED: PROMETHAZINE 25 MG/1 ML VIAL IM PRN (10:21)
[2020-04-04] MEDS ORDERED: GLUCAGON 1 MG VIAL IM PRN (10:21)
[2020-04-04] MEDS ORDERED: oxyCODONE/ACETAMINOPHEN 5-325 MG TABLET PO PRN (10:21)
[2020-04-04] MEDS ORDERED: HYDROmorphone 2 MG/1 ML VIAL IV PRN (10:21)
[2020-04-04] MEDS ORDERED: NALOXONE 0.4 MG/ML VIAL IV PRN (10:21)
[2020-04-04] MEDS ORDERED: ONDANSETRON 4 MG/2 ML VIAL IV PRN (10:21)
[2020-04-04] MEDS ORDERED: NITROGLYCERIN SL 0.4 MG TABLET SL PRN (10:23)
[2020-04-04] MEDS ORDERED: NITROPRUSSIDE 100 MG in DEXTROSE 5% 250 ML IV SCH (10:30)
[2020-04-04] MEDS ORDERED: PHENYLEPHRINE DRIP 40 MG/250 ML PREMIX IV SCH (10:30)
[2020-04-04 11:42] VITALS: BP 132/59
[2020-04-04] MEDS: HYDROmorphone 2 MG/1 ML VIAL IV PRN ×2 (12:06→22:08)
[2020-04-04] MEDS ORDERED: NITROPRUSSIDE 50 MG/2 ML VIAL ONE (13:18)
[2020-04-04] MEDS: oxyCODONE/ACETAMINOPHEN 5-325 MG TABLET PO PRN ×2 (16:00→20:43)
[2020-04-04] MEDS: GABAPENTIN 400 MG CAPSULE PO SCH ×2 (16:00→20:43)
[2020-04-04] MEDS: INSULIN REGULAR 100 UNIT/ML SUBCUT SCH ×2 (18:10→20:43)
[2020-04-04 18:36] LABS: CKMB % 2.2 %; Troponin I 0.02 NG/ML (0.00-0.045)
[2020-04-04 18:56] LABS: CKMB % 2.2 %; Troponin I 0.022 NG/ML (0.00-0.045)
[2020-04-04] MEDS: carvediloL 6.25 MG TABLET PO SCH (20:43)
[2020-04-05] MEDS: oxyCODONE/ACETAMINOPHEN 5-325 MG TABLET PO PRN ×2 (04:29→07:47)
[2020-04-05 05:52] LABS: Troponin I 0.016 NG/ML (0.00-0.045)
[2020-04-05] MEDS: LACTATED RINGERS 1,000 ML IV SCH (07:54)
[2020-04-05] MEDS: INSULIN REGULAR 100 UNIT/ML SUBCUT SCH (07:59)
[2020-04-05] MEDS: carvediloL 6.25 MG TABLET PO SCH (08:14)
[2020-04-05] MEDS: GABAPENTIN 400 MG CAPSULE PO SCH (08:14)
[2020-04-05] MEDS ORDERED: ROSUVASTATIN 20 MG TABLET PO SCH (09:00)
[2020-04-05] MEDS ORDERED: hydroCHLOROthiazide 12.5 MG CAPSULE PO SCH (09:00)
[2020-04-05] MEDS ORDERED: ASPIRIN EC 81 MG TABLET PO SCH ×2 (09:00)
[2020-04-05] MEDS ORDERED: CLOPIDOGREL 75 MG TABLET PO SCH ×2 (09:00)
[2020-04-05] MEDS ORDERED: LOSARTAN 50 MG TABLET PO SCH (09:00)
[2020-04-05] MEDS ORDERED: ISOSORBIDE MONONITRATE 60 MG TABLET PO SCH (09:00)
== END 2020-04-05 09:50 | disposition home or self-care (01) | DRG 39 ==
LOC: N.OR 06:32 → N.SDSINP 06:32 → EDSTATUS 08:30 → N.ICU 10:21
PROVIDERS: ADMIT Surgery; ATTEND Surgery